=== PATIENT | female | born 1955 | race Caucasian/White ===

== ENCOUNTER 2017-06-06 13:51 | Outpatient (CLI) | payer MEDICARE | END 2017-06-06 13:52 | disposition critical access hospital (66) | LOC: EMS 13:51 | PROVIDERS: ATTEND Surgery | DX: Z04.6 Encounter for general psychiatric examination, requested by authority (principal) | CPT/HCPCS: A0425; A0429 ==

== ENCOUNTER 2017-06-06 14:09 | Emergency (ER) | payer MEDICARE ==
[2017-06-06] MEDS ORDERED: HALOPERIDOL 5 MG/ML VIAL IM STA (14:13)
[2017-06-06] MEDS ORDERED: LORazepam 2 MG/ML VIAL IM PRN (14:13)
[2017-06-06] MEDS ORDERED: LORazepam 2 MG/ML VIAL ONE (14:22)
[2017-06-06] MEDS ORDERED: diphenhydrAMINE INJ 50 MG/ML VIAL ONE (14:22)
[2017-06-06] MEDS ORDERED: HALOPERIDOL 5 MG/ML VIAL ONE (14:23)
[2017-06-06] MEDS: diphenhydrAMINE INJ 50 MG/ML VIAL IM STA ×2 (14:24→14:25)
[2017-06-06 15:55] LABS: BASOPHILS % (AUTO) 0.4 %; EOSINOPHILS % (AUTO) 0.4 %; HCT - HEMATOCRIT 34.9 % (37.0-47.0); LYMPHOCYTES # (AUTO) 1.3 10^3/uL (1.5-3.5); LYMPHOCYTES % (AUTO) 18.1 %; MEAN CORPUSCULAR HEMOGLOBIN 31.5 pg (27.0-31.0); MEAN CORPUSCULAR HGB CONC 34.3 g/dL (32.0-36.0); MONOCYTES # (AUTO) 0.6 10^3/uL (0.0-1.0); MONOCYTES % (AUTO) 8.5 %; NEUTROPHILS % (AUTO) 72.6 %; RED CELL DISTRIBUTION WIDTH 14.1 % (12.0-15.0); UNCORRECTED WHITE BLOOD COUNT 6.9 x10^3/uL; WHITE BLOOD COUNT 6.9 x10^3/uL (4.8-10.8)
[2017-06-06 16:07] LABS: PT - PROTHROMBIN TIME 11.1 secs (9.9-12.6)
[2017-06-06 16:09] LABS: ACETAMINOPHEN < 10 ug/mL (10-30); ALBUMIN/GLOBULIN RATIO 1.5 (1.0-2.2); BILIRUBIN,TOTAL 0.8 mg/dL (0.2-1.0); BUN - BLOOD UREA NITROGEN 21 mg/dL (6-20); CALCIUM 9.6 mg/dL (8.5-10.3); CARBON DIOXIDE - CO2 22 mmol/L (21-32); CHLORIDE 103 mmol/L (101-111); CREATININE 0.7 mg/dL (0.4-1.0); GFR - MDRD 85 (>89); GLUCOSE 95 mg/dL (70-100); LIPASE 22 U/L (22-51); POTASSIUM 3.6 mmol/L (3.5-5.0); SALICYLATE < 6.0 mg/dL; SODIUM 139 mmol/L (135-145); TOTAL PROTEIN 6.4 g/dL (6.7-8.2)
[2017-06-06 16:11] LABS: BILIRUBIN,URINE NEGATIVE (NEGATIVE); PH,URINE 6.5 PH (5.0-7.5)
[2017-06-06 16:12] LABS: UA CHARGE (STRIP ONLY) YES; UR CULTURE IF IND NOT INDICATED
--- NOTE | 2017-06-06 20:19 | ED Physician Documentation ---
History of Present Illness - Stated complaint Stated Complaint: MHE - Chief complaint Chief Complaint: MHE - History obtained from History obtained from: EMS (pt arrived by EMS under police hold after they were called about the pt's behavior. it was reported that the pt was breaking windows and possible eating glass. arrived combative and yelling.) Review of Systems Unable to obtain: Confused PD PAST MEDICAL HISTORY - Past Medical History Cardiovascular: None Respiratory: None Endocrine/Autoimmune: None Psych: Depression, Anxiety, Schizophrenia Musculoskeletal: Fatigue, Chronic back pain - Past Surgical History Past Surgical History: No /[employer]: section - Present Medications Home Medications: Ambulatory Orders Medication Instructions Recorded Confirmed Cyclobenzaprine [Flexeril] 10 mg PO TID PRN #20 tablet 03/31/17 04/13/17 Meloxicam [Mobic] 7.5 mg PO BID PRN #20 tablet 03/31/17 04/13/17 Escitalopram Oxalate [Lexapro] 2 tab PO DAILY 04/13/17 04/13/17 - Allergies Allergies/Adverse Reactions: Allergies Allergy/AdvReac Type Severity Reaction Status Date / Time Sulfa (Sulfonamide Allergy Unknown Verified 06/06/17 14:29 Antibiotics) - Social History Does the pt smoke?: No Smoking Status: Never smoker Does the pt drink ETOH?: Yes Does the pt have substance abuse?: No - Immunizations Immunizations are current?: Yes - POLST Patient has POLST: No PD ED PE NORMAL - Vitals Vital signs reviewed: Yes - General General: Well developed/nourished. No: No acute distress (severe distress) - HEENT HEENT: Atraumatic, Moist mucous membranes. No: Pharynx benign (dried blood in the mouth no cuts noted) - Cardiac Cardiac: RRR, No murmur - Respiratory Respiratory: No respiratory distress, Clear bilaterally - Abdomen Abdomen: Soft, Non distended - Derm Derm: Normal color, No rash, Other (no cuts ) - Extremities Extremities: No deformity, Other (moves all 4 equally ) - Neuro Eye Opening: Spontaneous Motor: Obeys Commands Verbal: Inappropriate GCS Score: 13 PD ED PE EXPANDED - Neuro Neuro: Confused - Psych Psych: Agitated, Combative, Flight of ideas, Other (yelling and saying things like "this is not correct" and comments about the constitution ) Results - Vitals Vitals: Vital Signs - 24 hr 06/06/17 06/06/17 06/06/17 14:43 16:20 18:00 Temperature 36.8 C 36.4 C L Heart Rate 74 67 53 L Respiratory 14 18 15 Rate Blood Pressure 104/65 98/58 L O2 Saturation 97 97 100 06/06/17 06/06/17 19:03 19:36 Temperature Heart Rate 52 L 67 Respiratory 12 16 Rate Blood Pressure 113/69 100/61 O2 Saturation 100 100 Oxygen O2 Source Room air - EKG (time done) 1551 Rate: Rate (enter#) Rhythm: NSR [place]: Normal Intervals: Normal AR, QRS normal QRS: Normal Ischemia: Normal ST segments - Labs Labs: Laboratory Tests 06/06/17 06/06/17 06/06/17 15:47 15:47 15:47 WBC 6.9 RBC 3.80 L Hgb 12.0 Hct 34.9 L MCV 92.0 MCH 31.5 H MCHC 34.3 RDW 14.1 Plt Count 233 MPV 8.0 Neut # 5.0 Lymph # 1.3 L [place] # 0.6 Eos # 0.0 Baso # 0.0 Absolute Nucleated RBC 0.00 Nucleated RBC % 0.0 PT 11.1 INR 1.0 APTT 24.0 L Sodium 139 Potassium 3.6 Chloride 103 Carbon Dioxide 22 Anion Gap 14.0 H BUN 21 H Creatinine 0.7 Estimated GFR (MDRD) 85 L Glucose 95 Lactic Acid Calcium 9.6 Total Bilirubin 0.8 AST 27 ALT 35 Alkaline Phosphatase 47 Total Creatine Kinase 192 Total Protein 6.4 L Albumin 3.8 Globulin 2.6 Albumin/Globulin Ratio 1.5 Lipase 22 Urine Color Urine Clarity Urine pH Ur Specific [place] Urine Protein Urine Glucose (UA) Urine Ketones Urine Occult Blood Urine Nitrite Urine Bilirubin Urine Urobilinogen Ur Leukocyte Esterase Ur Microscopic Review Urine Culture Comments Salicylates < 6.0 Urine Opiates Screen Ur Oxycodone Screen Urine Methadone Screen Ur Propoxyphene Screen Acetaminophen < 10 L Ur Barbiturates Screen Ur Tricyclics Screen Ur Phencyclidine Scrn Ur Amphetamine Screen U Methamphetamines Scrn U Benzodiazepines Scrn Urine Cocaine Screen U Cannabinoids Screen Ethyl Alcohol 06/06/17 06/06/17 06/06/17 15:47 16:00 19:35 WBC RBC Hgb Hct MCV MCH MCHC RDW Plt Count MPV Neut # Lymph # [place] # Eos # Baso # Absolute Nucleated RBC Nucleated RBC % PT INR APTT Sodium Potassium Chloride Carbon Dioxide Anion Gap BUN Creatinine Estimated GFR (MDRD) Glucose Lactic Acid 1.0 Calcium Total Bilirubin AST ALT Alkaline Phosphatase Total Creatine Kinase Total Protein Albumin Globulin Albumin/Globulin Ratio Lipase Urine Color YELLOW Urine Clarity CLEAR Urine pH 6.5 Ur Specific [place] 1.020 Urine Protein NEGATIVE Urine Glucose (UA) NEGATIVE Urine Ketones 15 H Urine Occult Blood NEGATIVE Urine Nitrite NEGATIVE Urine Bilirubin NEGATIVE Urine Urobilinogen 0.2 (NORMAL) Ur Leukocyte Esterase NEGATIVE Ur Microscopic Review NOT INDICATED Urine Culture Comments NOT INDICATED Salicylates Urine Opiates Screen NEGATIVE Ur Oxycodone Screen NEGATIVE Urine Methadone Screen NEGATIVE Ur Propoxyphene Screen NEGATIVE Acetaminophen Ur Barbiturates Screen NEGATIVE Ur Tricyclics Screen NEGATIVE Ur Phencyclidine Scrn NEGATIVE Ur Amphetamine Screen NEGATIVE U Methamphetamines Scrn NEGATIVE U Benzodiazepines Scrn NEGATIVE Urine Cocaine Screen NEGATIVE U Cannabinoids Screen NEGATIVE Ethyl Alcohol < 5.0 PD MEDICAL DECISION MAKING - ED course Complexity details: reviewed old records, reviewed results, re-evaluated patient ED course: pt arrived combative but was alert and maintaining airway. she was given B52 because of the combativeness. This calmed her down. restraints were able to be removed. labs unremarkable. ETOH no done upon admission but was drawn later and was neg. On my re-evaluation the pt did follow some commands like squeezing hands but would not open her eyes. she did not know where she was. states that she did not do any drugs. states that she was not breaking windows or eating glass but most of the answers were mumbles. Review of hx states that she has been here in the past and has a hx of depression, SI, and schizophrenia. When ETOH was neg and pt was somewhat confused a head CT was ordered. AAs ordered because of the reported glass ingestion. Care turned over to Dr Armstrong at 2044.
--- NOTE | 2017-06-06 21:26 | CT Preliminary Report ---
Exam: CT HEAD W/O IMPRESSION: Generalized age-related cortical atrophic changes without evidence of acute intracranial abnormality. [facility] SITE ID: [id number]
--- NOTE | 2017-06-06 22:32 | CT Report ---
EXAM: CT HEAD EXAM DATE: 06/06/2017 09:06 PM. CLINICAL HISTORY: Altered mental status. COMPARISON: None. TECHNIQUE: Multiaxial CT images were obtained from the foramen magnum to the vertex. Reformats: Coron al. IV contrast: None. In accordance with CT protocol optimization, one or more of the following dose reduction techniques w ere utilized for this exam: automated exposure control, adjustment of mA and/or KV based on patient s ize, or use of iterative reconstructive technique. FINDINGS: Parenchyma: No intraparenchymal hemorrhage. No evidence of mass, midline shift, or CT findings of acu te infarction. Freitas-white differentiation is distinct. Diffuse chronic microangiopathic white matter changes are evident. Extraaxial Spaces: Normal for age. No subdural or epidural collections identified. Ventricles: The ventricles and cortical sulci are enlarged, consistent with age-related tissue loss. Sinuses and orbits: Imaged paranasal sinuses, orbits, and mastoids show no significant abnormality. Bones: No evidence of fracture or calvarial defect. Other: None. IMPRESSION: Generalized age-related cortical atrophic changes without evidence of acute intracranial abnormality. [facility] Referring Provider Line: [phone] SITE ID: [id number]
--- NOTE | 2017-06-06 22:43 | XRAY Preliminary Report ---
Exam: XR CHEST 2 VIEW PA/LAT IMPRESSION: 1. No radiopaque foreign bodies. 2. No acute pulmonary process. [facility] SITE ID: [id number]
--- NOTE | 2017-06-06 22:45 | XRAY Preliminary Report ---
Exam: XR ABDOMEN ACUTE IMPRESSION: 1. No acute pulmonary process. 2. No unexpected radiopaque foreign bodies. 3. Moderate amount of flow throughout colon. Nonobstructive bowel gas pattern. [facility] SITE ID: [id number]
--- NOTE | 2017-06-07 00:25 | XRAY Report ---
EXAM: ABDOMINAL SERIES AND PA CHEST EXAM DATE: 06/06/2017 09:03 PM. CLINICAL HISTORY: Foreign body ingestion. COMPARISON: None. TECHNIQUE: 2 views abdomen and 1 view chest. Additional single view images were acquired of the chest and abdomen at 2140 hrs. FINDINGS: CHEST: Lungs/Pleura: No focal opacities. No effusion or pneumothorax. Mediastinum: Within exam limitations, cardiomediastinal contour is normal. ABDOMEN: Bowel Gas Pattern: No dilated bowel noted. Moderate amount of stool throughout the colon. Free Air: None. Other: No radiopaque foreign bodies are identified after the repeat imaging. IMPRESSION: 1. No acute pulmonary process. 2. No unexpected radiopaque foreign bodies. 3. Moderate amount of stool throughout the colon. Nonobstructive bowel gas pattern. [facility] Referring Provider Line: [phone] SITE ID: [id number]
--- NOTE | 2017-06-07 00:25 | XRAY Report ---
EXAM: CHEST RADIOGRAPHY EXAM DATE: 06/06/2017 10:14 PM. CLINICAL HISTORY: Chest/esophageal foreign body? COMPARISON: None. TECHNIQUE: 2 views. FINDINGS: Lungs/Pleura: No focal opacities evident. No pleural effusion. No pneumothorax. Normal volumes. Mediastinum: Heart and mediastinal contours are unremarkable. Other: None. IMPRESSION: 1. No radiopaque foreign bodies. 2. No acute pulmonary process. [facility] Referring Provider Line: [phone] SITE ID: [id number]
[2017-06-07 02:07] VITALS: BP 103/79
--- NOTE | 2017-06-07 02:36 | ED Physician Documentation ---
ED Addendum - Addendum Addendum: 06/07/17 02:31 Patient has remained calm and cooperative here in the ED since I assumed care. No need for repeat medications. She is still having some tangential train of thought and some pressured speech when talking. Some loose associations as well. IDA Lee came to ED and evaluated the patient and is seeking hospitalization for acute psychosis.
== END 2017-06-07 04:22 ==
LOC: EDUNIT# → ED 14:09 → EDSEX 14:09 → ED 06-07 04:22
DX: F31.61 Bipolar disorder, current episode mixed, mild (principal); F41.8 Other specified anxiety disorders; F20.9 Schizophrenia, unspecified; R41.0 Disorientation, unspecified
CPT/HCPCS: 36415; 70450; 71020; 74022; 80053; 80306; 80307; 81003; 82550; 83605; 83690; 85025; 85610; 85730; 93005; 96372; 99284; 99285; G0480; J2060; 80320; 80329; 81001; 87086

== ENCOUNTER 2017-06-07 04:21 | Outpatient (CLI) | payer MEDICARE | END 2017-06-07 04:22 | disposition short-term general hospital (02) | LOC: EMS 04:21 | PROVIDERS: ATTEND Surgery | DX: F23 Brief psychotic disorder (principal) | CPT/HCPCS: A0425; A0428 ==